=== PATIENT | female | born 1995 ===

== ENCOUNTER 2023-11-05 15:37 | Emergency (ER) | payer SELFPAY ==
[2023-11-05 16:02] VITALS: BP 107/72; PULSE 83; RESP 18; TEMP 98; BMI 28.3
== END 2023-11-05 18:59 | disposition home or self-care (01) ==
LOC: JERFT 15:37
DX: H72.92 Unspecified perforation of tympanic membrane, left ear (principal)
CPT/HCPCS: 99283-25